=== PATIENT | male | born 1980 | race Caucasian/White ===

== ENCOUNTER 2020-06-26 22:38 | Emergency (ER) | payer OTHER, SELFPAY ==
[2020-06-26 22:40] VITALS: BP 116/103; PULSE 100; RESP 17; TEMP 36.6; O2SAT 92; BMI 25.9
--- NOTE | 2020-06-26 22:54 | EKG12_ITS ---
Test Reason : DYSRHYTHMIA Blood Pressure : / mmHG Vent. Rate : 082 BPM Atrial Rate : 082 BPM P-R Int : 212 ms QRS Dur : 096 ms QT Int : 370 ms P-R-T Axes : 062 096 060 degrees QTc Int : 432 ms Sinus rhythm with 1st degree A-V block Rightward axis Borderline ECG Confirmed by SISSY PEDERSON, JORDAN ([id number]), index editor AUSTEN COSTA ([id number]) on 07/02/2020 10:57:23 AM Referred By: NEIL Confirmed By:DENISE SHEEHAN MD
--- NOTE | 2020-06-26 22:54 | RAD_ITS ---
STUDY: X-RAY CHEST REASON FOR EXAM: Male, 39 years old. CONGESTION AND COLD S/S LAST WEEK, THURSDAY STARTED FEELING SOB, TODAY WORSENING SOB TECHNIQUE: Single AP portable view of the chest. COMPARISON: None. FINDINGS: There are monitoring devices. There are mild patchy upper lung increased opacities. There is no demonstrated pleural abnormality. Normal size heart. Normal mediastinum and echo. Normal visualized pulmonary arteries. Normal visualized aortic arch and descending thoracic aorta. Normal visualized thoracic spine. Normal visualized ribs, clavicles, and shoulders. There is no demonstrated abnormality of the visualized soft tissue structures of the upper abdomen. RAD/Chest 1 View (Portable) IMPRESSION: Bilateral infiltrates. Electronically Signed: Lee Morris MD at 23:45 EST , Service support ,
--- NOTE | 2020-06-26 22:55 | ED.VISSUMM ---
- ER Visit Summary Date of Service: 06/26/20 Chief Complaint: Shortness of breath, chest tightness History of Present Illness: The patient is a 39 M who has shortness of breath and chest tightness. Is been ongoing for a week. The chest tightness got worse yesterday and this morning. He has had a lot of sinus drainage and postnasal drip. Nothing makes his symptoms better or worse. He denies a cough. The tightness is all over his chest. He denies a fever. No exposure to anybody with coronavirus. He did take Mucinex today to help with the symptoms. He has no other health issues. He has no cardiac risk factors and is not a smoker. Physical Examination: Vital signs reviewed. HEENT exam shows moist mucous membranes, swollen turbinates bilaterally. Heart is regular rate and rhythm without murmurs. Lungs are clear to auscultation. Abdomen is soft and nontender. Extremities reveal no edema. Skin exam normal. Neurologic exam normal. Test Results: EKG is sinus rhythm with a rate of 82. Early repolarization noted. First-degree AV block as well. No ischemic changes. Laboratory studies are unremarkable except for a creatinine of 1.33. Chest x-ray shows mild bilateral infiltrates Emergency Department Course and Treatment: The patient is currently refusing a coronavirus test. He states he does not want to be swabbed for this. His chest x-ray does have mild bilateral infiltrates which is likely consistent with Covid. The patient is PERC negative as I evaluate him currently. His heart rate is 89 and his pulse ox is 95% on room air. I feel that his likely diagnosis is coronavirus. He does not have an elevated white blood cell count or a fever. I do not feel that he requires antibiotics at this time however, if his symptoms do not improve he may need antibiotics since he does not want to be tested definitively for the viral coronavirus. Patient is still refusing to be tested. I recommended quarantine at home. I will give him an albuterol inhaler and he will continue his Mucinex at home. He is going to call his doctor for follow-up Treatment Plan: [] Disposition: Discharge Impression: Bilateral pneumonia, suspected COVID-19 This note was generated with [employer]ip[employer] software. It may contain incorrect words, spelling, and punctuation that were not noted in review of the chart prior to signing ED Disposition - Plan for ED Patient: Disposition: Home or Assisted Living Instructions: Coronavirus Disease 2019 (COVID-19): Caring for Yourself or Others Prescriptions: Albuterol Inhaler [Ventolin Hfa] 1 - 2 puff INHALATION Q4H PRN PRN #1 inhaler PRN Reason: Wheezing Transmission Status: Pending to [id number] Referrals: Yang Montana MD [Primary Care Provider] -
[2020-06-26 23:20] VITALS: O2SAT 96
[2020-06-26 23:51] LABS: Absolute Lymphocyte Count 2.51 X10^3/uL (0.83-4.51); Basophil# 0.05 X10^3/uL; Basophil% 0.6 % (0-1); Eosinophil# 0.73 X10^3/uL; Eosinophils% 9.2 % (0-5); Hematocrit 46.2 % (40-54); Hemoglobin 15.9 g/dL (13.0-16.5); Lymphocyte # 2.51 X10^3/ul (4.0); Lymphocyte % 31.7 % (19-41); Mean Corp Hgb Conc 34.4 g/dL (32-36); Mean Corpuscular Hgb 29.5 pg (27.0-32.0); Mean Corpuscular Volume 85.7 fL (80-94); Mean Platelet Vol. 9.4 fl (6.2-12.0); Monocyte# 0.58 X10^3/uL; Monocyte% 7.3 % (0-10); NRBC Flagged by Analyzer 0 % (0-5); Neutrophil # 3.97 X10^3/uL (2.7-7.7); Neutrophil % 50.2 % (47-70); Platelet Count 197 K/mm3 (150-450); RBC Distribution Width CV 12.1 % (11.6-14.6); RBC Distribution Width SD 37.7 fl (35.1-43.9); Red Blood Count 5.39 M/mm3 (4.6-6.2); White Blood Count 7.9 K/mm3 (4.4-11.0)
[2020-06-26 23:53] LABS: Anion Gap 5 (5-15); BUN 16 mg/dL (7-18); Chloride 102 mmol/L (98-107); Creatinine, Serum 1.33 mg/dL (0.70-1.30); EST Glomerular Filtration Rate 64 mL/min (>60); Est Glom Filt Rate - Afr Amer 78 mL/min (>60); Estimated Creatinine Clearance 83.47 ml/min; Glucose 95 mg/dL (74-106); Potassium 4.1 mmol/L (3.5-5.1); Sodium Level 136 mmol/L (136-145)
[2020-06-27 00:11] VITALS: BP 150/95; PULSE 95; RESP 15; O2SAT 96
--- NOTE | 2020-06-27 00:12 | ED.RN ---
PT A+OX3, PT EDUCATED ON DISCHARGE INSTRUCTIONS AND HOME GOING PAPERWORK. PT VERBALIZES UNDERSTANDING. PT EDUCATED ON CORONAVIRUS AND QUARANTINE GUIDELINE, AND USE ON INHALER HOME GOING PRESCRIPTION. PT VERBALIZES UNDERSTANDING AND DENIES ANY FURTHER QUESTIONS. PT IV D/C AND COVERED WITH 2X2 GAUZE AND PAPER TAPE. PT DRESSES SELF AND AMBULATES OUT OF DEPT BY SELF.
== END 2020-06-27 00:13 | disposition home or self-care (01) ==
PROVIDERS: Emergency Provider Emergency Medicine; PCP Family Medicine
DX: J18.9 Pneumonia, unspecified organism (principal)
CPT/HCPCS: 71045; 80048; 84484; 85025; 93005; 99285; A4216